=== PATIENT | female | born 1990 | race Caucasian/White ===

== ENCOUNTER 2020-04-30 16:32 | Outpatient (CLI) | payer OTHER, SELFPAY ==
[2020-04-30 16:53] LABS: Hematocrit 30.7 % (37.0-47.0); Hemoglobin 10.5 g/dL (12.0-15.0); Mean Corpuscular HGB Conc 34.2 g/dl (32-36); Mean Corpuscular Hemoglobin 30.3 pg (26-34); Mean Corpuscular Volume 88.7 fl (80-100); Mean Platelet Volume 10.8 fl (7.4-10.4); Platelet Count Result 171 k/mm3 (150-375); Red Blood Count 3.46 M/mm3 (4.2-5.4); Red Cell Distribution Width 12.4 % (11.5-14.5); White Blood Count 11.5 K/mm3 (4.5-10.0)
[2020-05-01 07:28] LABS: Rapid Plasma Reagin Non-Reactive (NonReactive)
== END 2020-04-30 16:33 | disposition home or self-care (01) ==
LOC: ANHLAB 16:36
PROVIDERS: Visit Provider Obstetrics & Gynecology
DX: Z01.818 Encounter for other preprocedural examination (principal)
CPT/HCPCS: 36415; 85027; 86592; 86850; 86900; 86901

== ENCOUNTER 2020-05-01 09:57 | Inpatient (IN) | payer OTHER, SELFPAY ==
--- NOTE | 2020-04-19 13:07 | PC.NURSE ---
VERIFIED WITH OR SCHEDULE AND PATIENT--C/S ON 05/01/20 AT 1200 PATIENT GIVEN REQUISITION FOR LAB DRAW ON 04/30/20
[2020-05-01] VITALS (60 sets, daily range): BP systolic 115–157; BP diastolic 59–99; PULSE 61–97; RESP 14–18; TEMP 36.2–37.3; O2SAT 95–100; BMI 25.7
--- NOTE | 2020-05-01 09:57 | LDADM ---
This patient, Yoselin Starr, was admitted to Labor/Delivery/Recovery 120 on 05/01/20 at 09:57. Plans for labor, pain management and were discussed with patient. Patient/family oriented to hospital policies and general routines including ID bracelet, bed and alarms, visiting hours, pain management, procedures, bathroom and other care routines, personal items, smoking policy, room service/diet and guest tray routines, infant security routines, and visiting hours. Patient/Family are encouraged to report perceived risks to care and to ask questions if they do not understand what they are told or what they should do. See OBIX for further documentation.
[2020-05-01] MEDS: LACTATED RINGERS 1,000 ML 125 ML IV CONT ×2 (10:30→11:24)
--- NOTE | 2020-05-01 11:13 | WPDANESEPPF ---
Anes - Initial Pre Proc Eval Procedure: Operation Date: 05/01/20 12:00 Proposed Procedures p Repeat Section - Caleb Bowie MD Date/Time: 05/01/20 11:13 Surgeon: Caleb Bowie MD Pre Op Diagnosis: C Section Patient Data Age: 29 Gender: F Height: 5 ft 9 in Weight: 79 kg Last Vital Signs Temp 37.1 C 05/01/20 10:30 Pulse 74 05/01/20 10:45 BP 118/74 05/01/20 10:45 Allergies Allergy/AdvReac Type Severity Reaction Status Date / Time BEE STINGS Allergy Swelling Uncoded 04/19/20 12:42 Home Medications Medication Instructions Recorded Confirmed Type PNV cmb#95-ferrous fumarate-FA 1 tablet PO DAILY 04/19/20 04/19/20 History [] escitalopram oxalate [Lexapro] 20 mg PO DAILY 04/19/20 04/19/20 History Patient hx anesthesia problems: none Family hx anesthesia problems: none PMFSH Surgical History Surgical History (Updated 05/01/20 @ 11:13 by Michael Jimenes MD) Previous delivery, delivered Family History Family History Father Parkinson disease Diabetes type 1, controlled Grandparent Cancer Social History Social History Smoking status: Never smoker Second hand tobacco smoke exposure: No Substance use: never Spiritual care concerns: No Anes - Eval Final PreProcedure Day of Procedure 05/01/20 11:13 Patient weight: normal Heart: regular rate and rhythm Lungs: clear to auscultation Airway: Mallampati scale class 1 Neurological: alert and oriented Emergent: no Anesthetic plan: proceed Anesthesia type and monitoring: regional spinal and standard monitoring Informed Consent: The patient's anesthetic plan and its attendant risks and benefits were discussed with the patient/family/POA. Questions were solicited and answers provided to the satisfaction of the patient/family/POA.
--- NOTE | 2020-05-01 11:54 | P.HP_ITS ---
H&P: HPI History of Present Illness Date/Time: 05/01/20 11:54 Chief complaint: C Section Narrative: 29 y/o at 39 weeks here for a repeat cesaeran. GBS neg. Review of Systems Review of Systems: All systems reviewed & are unremarkable except as noted in HPI and below PMFSH Past Medical History Medical History OCD (obsessive compulsive disorder) Surgical History Surgical History Previous delivery, delivered Family History Family History Father Parkinson disease Diabetes type 1, controlled Grandparent Cancer Social History Social History Smoking status: Never smoker Second hand tobacco smoke exposure: No Substance use: never Spiritual care concerns: No Meds Home Medications and Allergies Home Medications Medication Instructions Recorded Confirmed Type PNV cmb#95-ferrous fumarate-FA 1 tablet PO DAILY 04/19/20 04/19/20 History [] escitalopram oxalate [Lexapro] 20 mg PO DAILY 04/19/20 04/19/20 History Allergies Allergy/AdvReac Type Severity Reaction Status Date / Time BEE STINGS Allergy Swelling Uncoded 04/19/20 12:42 Vital Signs Vital Signs - 24 hr 05/01/20 10:30 05/01/20 10:32 05/01/20 10:45 Temperature 37.1 C Pulse Rate 76 74 Blood Pressure 115/73 118/74 Exam Const: Orientation/consciousness: patient oriented x3 Other: Well- developed, well-nourished female in no acute distress. Neck: Thyroid: thyroid normal Lymphatic: no lymphadenopathy noted (in neck, axilla or inguinal nodes) Resp: Effort & Inspection: normal respiratory effort Auscultation: clear to auscultation bilaterally Cardio: Rate: regular rate Rhythm: regular rhythm Heart sounds: S1 normal heart sound present and S2 normal heart sound present GI: Other: ABD: Soft, nontender, gravid. NST reactive. Rare contractions. : General: Yes no CVA tenderness Other: Cervix closed, thick Back/Spine/Pelvis: Back: no CVA tenderness Skin: General skin exam: normal color and no rashes or lesions noted Neuro: General: patient oriented x3 Extrem: Other: Extremities: nontender with no edema Psych: Mental Status: mental status grossly normal Affect: normal affect Assessment and Plan Assessment and plan (1) Term : Code(s): Z34.90 - Encounter for supervision of normal , unspecified, unspecified trimester Status: Acute (2) History of delivery: Code(s): Z98.891 - History of uterine scar from previous surgery Status: Acute Assessment and Plan: A: IUP at 39 weeks with prior , desiring repeat. P: She understands risks of surgery to include risks of anesthesia, risks of pain, infection, bleeding, blood products, thromboembolic phenomena and damage to adjacent structures such as bowel, bladder, ureters, blood vessels and nerves. She understands all these risks and elects to proceed with repeat low transverse delivery.
[2020-05-01] MEDS: ceFAZolin 2 GM/D5W 50 ML 2 GM/50 ML BAG IVPB (11:57)
--- NOTE | 2020-05-01 12:01 | WPDHPUPDATE1 ---
History and Physical Update Update Date/Time: 05/01/20 12:01 History and Physical has been reviewed, including an updated exam of the patient. There are NO changes in the patient's condition. Risks, benefits, and alternatives have been discussed and questions answered. Patient agrees to proceed with procedure.
--- NOTE | 2020-05-01 12:49 | PM.OBPRVD ---
OB - Delivery Note Procedure Procedure: Procedures Operation Date: 05/01/20 12:00 <No data on this case meets the specified criteria> Repeat low transverse delivery Delivery monitor: external FHT and external uterine Route of delivery: Specimen: Yes (cord blood) Estimated blood loss (mL): 355 Anesthesia type: Spinal Disposition: PACU Complications: None Narrative: The patient was taken to the operating room where she was prepared and draped in the usual sterile fashion in dorsal supine position with a leftward tilt. She received cefazolin preoperatively. Spinal anesthesia was found to be adequate. A Pfannenstiel skin incision was made along the previous scar line and was carried through to the underlying layer of the fascia. The fascia was incised in the midline and the incision was extended laterally. The fascia was dissected free of the underlying rectus muscles. The rectus muscles were in the midline. The peritoneum was identified, tented up and entered sharply. The peritoneal incision was extended superiorly and inferiorly with good visualization of the bladder. The bladder blade was placed. The vesicouterine peritoneum was identified, tented up and entered sharply. The incision was extended laterally and the bladder flap was developed. The bladder blade was replaced. The uterus was then incised sharply in a transverse fashion along the lower uterine segment. The incision was extended laterally. The 's head was delivered atraumatically to the sterile field, followed by the body. The nose and mouth were bulb suctioned. After a delay, the cord was clamped and cut. The infant was handed off the field. Cord blood was collected. The placenta was removed manually and was passed off the field. The uterus was exteriorized and cleared of all clots and debris. The uterine incision was reapproximated using 0 Monocryl in a running, locked fashion. A second, imbricating layer of the same suture was placed. Excellent hemostasis resulted as did excellent reapproximation of the normal anatomy. The uterus was returned the abdomen. The pelvis was irrigated copiously with warmed normal saline. Rigorous hemostasis was assured. The fascial layer was reapproximated using 0 Vicryl in a running fashion. The skin was closed with a running, subcuticular stitch of 4 0 Vicryl. Dermaflex was applied externally. Sponge, lap, needle and instrument counts were correct. The patient was taken to the recovery room in stable condition. The went to the nursery in stable condition. I was present and scrubbed the entire procedure. [place] Baby Date of : 05/01/20 Time of : 12:20 Weeks of gestation at delivery: 39 gender: Male Weight (pounds): 8 Weight (ounces): 1 presentation: vertex Placenta delivery description: Manual Removal and Normal Configuration cord vessel description: 3 Vessels and Nuchal Cord (x2) score one minute: 8 score five minutes: 9
--- NOTE | 2020-05-01 12:51 | PM.OBDSVD ---
DS: Admitting Diagnosis Admitting Diagnosis Admitting Diagnosis: C Section <Caleb Bowie MD - Last Filed: 05/22/20 13:14> DS: Discharge Diagnosis Discharge Diagnosis (1) History of delivery: Code(s): Z98.891 - History of uterine scar from previous surgery <Caleb Bowie MD - Last Filed: 05/22/20 13:14> Status: Acute <Caleb Bowie MD - Last Filed: 05/22/20 13:14> (2) Term : Code(s): Z34.90 - Encounter for supervision of normal , unspecified, unspecified trimester <Caleb Bowie MD - Last Filed: 05/22/20 13:14> Status: Acute <Caleb Bowie MD - Last Filed: 05/22/20 13:14> OB - DS: Summary Hospital Course Hospital Course: 29 yo who presented for repeat delivery. Her delivery and course were uncomplicated. The patient was d/c home on POD #2. <Caleb Bowie MD - Last Filed: 05/22/20 13:14> OB Procedures : None <Dima Vick MD - Last Filed: 05/05/20 09:32> OB Procedures Intrapartum: low cervical, transverse <Dima Vick MD - Last Filed: 05/05/20 09:32> OB Procedures: : None <Dima Vick MD - Last Filed: 05/05/20 09:32> Peripartum Data Infant Delivery Method: Section <Dima Vick MD - Last Filed: 05/05/20 09:32> Episiotomy description: None <Dima Vick MD - Last Filed: 05/05/20 09:32> Procedures: Procedures Operation Date: 05/01/20 12:00 <No data on this case meets the specified criteria> Repeat LTCS <Caleb Bowie MD - Last Filed: 05/22/20 13:14> complications: none <Dima Vick MD - Last Filed: 05/05/20 09:32> Status at Discharge Functional status at discharge: independent ambulation <Dima Vick MD - Last Filed: 05/05/20 09:32> Overall status at discharge: patient is progressing back to baseline <Dima Vick MD - Last Filed: 05/05/20 09:32> Time Spent with Patient Time spent: Less than 30 minutes <Dima Vick MD - Last Filed: 05/05/20 09:32> Exam Const: General: cooperative, healthy appearing and comfortable <Dima Vick MD - Last Filed: 05/05/20 09:32> HENMT: Head: normal to inspection <Dima Vick MD - Last Filed: 05/05/20 09:32> Eyes: General: appearance normal, both eyes and all related structures <Dima Vick MD - Last Filed: 05/05/20 09:32> Neck: Neck: normal visual inspection <Dima Vick MD - Last Filed: 05/05/20 09:32> Resp: Effort & Inspection: normal respiratory effort <Dima Vick MD - Last Filed: 05/05/20 09:32> Cardio: Rate: regular rate <Dima Vick MD - Last Filed: 05/05/20 09:32> Rhythm: regular rhythm <Dima Vick MD - Last Filed: 05/05/20 09:32> GI: Inspection: incision (healing appropriately ) <Dima Vick MD - Last Filed: 05/05/20 09:32> GI Palp: Yes abdominal tenderness (mild tenderness over incision ) <Dima Vick MD - Last Filed: 05/05/20 09:32> Auscultation: normal bowel sounds <Dima Vick MD - Last Filed: 05/05/20 09:32> Discharge Plan Discharge Attending physician on discharge: Caleb Bowie <Caleb Bowie MD - Last Filed: 05/22/20 13:14> Caleb Bowie <Dima Vick MD - Last Filed: 05/05/20 09:32> Consulting providers: Michael Jimenes <Caleb Bowie MD - Last Filed: 05/22/20 13:14> Discharging Clinician: Caleb Bowie <Caleb Bowie MD - Last Filed: 05/22/20 13:14> Caleb Bowie <Dima Vick MD - Last Filed: 05/05/20 09:32> Patient Disposition: Home, Self-Care <Caleb Bowie MD - Last Filed: 05/22/20 13:14> Activity: may shower, may drive after 2 weeks and pelvic rest <Caleb Bowie MD - Last Filed: 05/22/20 13:14> may shower, may drive after 2 weeks and pelvic rest <Dima Flores
[2020-05-01] MEDS: LORATADINE 10 MG TABLET PO (14:00)
[2020-05-01] MEDS: METHYLERGONOVINE MALEATE 0.2 MG/ML VIAL IM (14:24)
[2020-05-01] MEDS: fentaNYL CITRATE INJ (*CRX) 100 MCG/2 ML VIAL 25 MCG IV PUSH ×2 (14:41→14:54)
[2020-05-01] MEDS: miSOPROStol 200 MCG TABLET 1000 MCG RECTAL (14:42)
[2020-05-01] MEDS: ONDANSETRON INJ 4 MG/2 ML VIAL IV PUSH ×2 (14:58→19:45)
[2020-05-01] MEDS: OXYTOCIN 30 UNITS/NS 500 ML 30 UNITS/500 ML BAG 125 UNITS IV CONT (15:01)
--- NOTE | 2020-05-01 16:12 | SUR.PHASEI ---
1415 pt passed clots with fundal massage. vaginal extract performed and 473 gm blood noted. called Dr Bowie and requested evaluation. 1425 methergin im given 1430 Dr. Bowie at bedside vaginal extract performed. additional 226 gm clots noted. 1435 cytotec given per rectal. fundus firm.
[2020-05-02] VITALS: BP 136/90; PULSE 72; RESP 16; TEMP 36.9
[2020-05-02] MEDS: KETOROLAC 30 MG/ML VIAL (*BKC) IV PUSH (01:30)
[2020-05-02 04:00] VITALS: BP 125/85; PULSE 69; RESP 16; TEMP 36.9
[2020-05-02 06:21] LABS: Basophils Percent Auto 0.3 % (0.2-1.2); Eosinophils Percent Auto 0.2 % (0-4.4); Hematocrit 27.6 % (37.0-47.0); Hemoglobin 9.2 g/dL (12.0-15.0); Immature Granulocyte Absolute 0.12 K/mm3 (0.00-0.031); Immature Granulocyte Percent A 0.8 % (0-0.5); Lymphocytes Percent Auto 8.2 % (18.3-44.2); Mean Corpuscular HGB Conc 33.3 g/dl (32-36); Mean Corpuscular Hemoglobin 29.7 pg (26-34); Mean Platelet Volume 10.8 fl (7.4-10.4); Monocytes Absolute Auto 1.1 K/mm3 (0.1-0.6); Monocytes Percent Auto 7.2 % (2.6-8.5); Neutrophils Absolute Auto 13.3 K/mm3 (1.3-6.7); Neutrophils Percent Auto 83.3 % (45.5-73.1); Platelet Count Result 168 k/mm3 (150-375); Red Cell Distribution Width 12.2 % (11.5-14.5); White Blood Count 15.9 K/mm3 (4.5-10.0)
--- NOTE | 2020-05-02 07:50 | PM.OBPNVD ---
OB - PN: Subj Subjective Date/time seen: 05/02/20 07:50 Interval history: Patient doing well this AM. she has ambulated out of bed. She is tolerating PO. She reports adequate pain control. Her bleeding is normal and she reports normal lochia. She denies fever, chills, N/V. She has not yet passed flatus. Patient comments: no complaints and pain well controlled; no flatus present OB - PN: Obj Data Labs CBC & Chem 7: 05/02/20 05:49 Labs: Laboratory Results - last 24 hr 05/02/20 05:49 WBC 15.9 H RBC 3.10 L Hgb 9.2 L Hct 27.6 L MCV 89.0 MCH 29.7 MCHC 33.3 RDW 12.2 Plt Count 168 MPV 10.8 H Immature Gran % (Auto) 0.8 H Neut % (Auto) 83.3 H Lymph % (Auto) 8.2 L [place] % (Auto) 7.2 Eos % (Auto) 0.2 Baso % (Auto) 0.3 Lymph # (Auto) 1.30 [place] # (Auto) 1.1 H Eos # (Auto) 0.0 Baso # (Auto) 0.0 Abs Immat Gran (auto) 0.12 H Absolute Neuts (auto) 13.3 H Absolute Nucleated RBC 0.0 Nucleated RBC % 0.0 OB - PN A/P Plan day: 1 Plan: routine care Comments: patient doing well this AM navarrete d/c this AM advance diet as tolerated H/H , will start iron supplement continue routine PP care plan for circumcision today risk, benefits, and alternatives to circumcision discussed with parents, consent obtained Time Spent With Patient Time: Total time spent is greater than 50% in coordination of care (as documented) at patient's floor/unit and/or counseling patient: Time with patient: less than 15 minutes Review of Systems Constitutional: Constitutional: Reports no additional constitutional complaints Cardiovascular: Cardiovascular: Reports no additional cardiovascular complaints Respiratory: Respiratory: Reports no additional respiratory complaints Gastrointestinal: Gastrointestinal: Reports no additional gastrointestinal complaints Genitourinary: Genitourinary: Reports no additional female genitourinary complaints Exam Const: General: comfortable and no acute distress Resp: Effort & Inspection: normal respiratory effort Auscultation: clear to auscultation bilaterally Cardio: Rate: regular rate GI: GI Palp: Yes Soft to palpation and Yes Tenderness to palpation present (GI) (appropriately tender around incision ) Auscultation: normal bowel sounds Other: fundus firm and below umbilicus Incision C/D/I Urinary Catheter: Urinary Catheter: urine clear Psych: Appearance: grossly normal Mental Status: mental status grossly normal Affect: normal affect
[2020-05-02 08:15] VITALS: BP 92/49; PULSE 79; RESP 16; TEMP 36.8; O2SAT 98
[2020-05-02] MEDS: IBUPROFEN 600 MG TABLET PO ×2 (10:22→16:40)
[2020-05-02] MEDS: ESCITALOPRAM OXALATE 10 MG TABLET 20 MG PO (10:23)
[2020-05-02] MEDS: MULTIVIT/MIN/PREN/FOL AC/IRON TABLET 1 TAB PO (10:24)
[2020-05-02] MEDS: DOCUSATE SODIUM 100 MG CAPSULE PO ×2 (10:24→16:40)
[2020-05-02] MEDS: POLYSACCHARIDE IRON COMPLEX 150 MG CAPSULE PO (10:24)
--- NOTE | 2020-05-02 10:40 | PC.NURSE ---
Consulted with patient, mother reports infant is sleepy after circumcision. Demonstrated stimulation techniques to wake infant, awoken and showing feeding cues. Reviewed feeding cues, frequencies, duration of feedings, feeding elimination flow sheet, and signs of adequate intake. Reviewed positioning/alignment in cross cradle, holding breast in U hold and guided asymmetrical latch on. Discussed rational for each. Infant was able to latch correctly. Infant nursed eagerly, with steady draws and frequent swallowing noted. Reviewed signs of a correct latch, effective nursing and suck swallow ratio. Infant was[able/unable] to maintain latch without discomfort to mother. Nipple care reviewed. Suggested to stimulate infant while feeding to keep awake and nursing effectively for increased intake and to assist with maintaining deep latch. Demonstrated how to adjust latch while feeding. Instructed mother to call out for RN assistance if she is unable to latch infant for feeding or she has discomfort with nursing. Instructed feeding should be initiated three hours from start of last feeding or if feeding cues are noted before. Mother voiced understanding of information shared.
--- NOTE | 2020-05-02 10:45 | WPDANLDPN2 ---
Anes-Prog Note L&D Date/Time: 05/02/20 10:45 Comfortable throughout: section Neuraxial method: spinal Epidural/Spinal procedure site: clean & non-tender Neuro status: Neuro function grossly intact. Cardiovascular status: normal Respiratory status: normal Airway patency: baseline Mental status: baseline Post-Op hydration status: normal Vital Signs: Last Vital Signs Temp 36.8 C 05/02/20 08:15 Pulse 79 05/02/20 08:15 Resp 16 05/02/20 08:15 BP 92/49 L 05/02/20 08:15 Pulse Ox 98 05/02/20 08:15 Pain score (VAS): 2 I/O: Intake & Output 05/01/20 05/02/20 05/02/20 23:59 07:59 15:59 Intake Total 1000 Output Total 1100 Balance -100 Post-procedural complaints: none Patient feedback: Patient satisfied with anesthetic care.
--- NOTE | 2020-05-02 10:45 | WPDANLDNPN2 ---
Anes-Prog Note L&D-Neuraxial Date/Time: 05/02/20 10:45 Neuraxial medications: intrathecal PF morphine Opiod-related complaints: none Patient feedback: Patient satisfied with post-operative pain management.
[2020-05-02 12:25] VITALS: BP 91/50; PULSE 90; RESP 16; TEMP 36.7; O2SAT 98
[2020-05-02] MEDS: POLYSACCHARIDE IRON COMPLEX 150 MG CAPSULE (16:40)
[2020-05-02] MEDS: SIMETHICONE 80 MG TAB.CHEW PO (16:41)
[2020-05-02 19:44] VITALS: BP 95/52; PULSE 94; RESP 16; TEMP 36.4; O2SAT 97
[2020-05-03] MEDS: IBUPROFEN 600 MG TABLET PO ×2 (01:02→08:14)
[2020-05-03] MEDS: POLYSACCHARIDE IRON COMPLEX 150 MG CAPSULE PO (08:14)
[2020-05-03] MEDS: ESCITALOPRAM OXALATE 10 MG TABLET 20 MG PO (08:14)
[2020-05-03] MEDS: MULTIVIT/MIN/PREN/FOL AC/IRON TABLET 1 TAB PO (08:14)
[2020-05-03] MEDS: DOCUSATE SODIUM 100 MG CAPSULE PO (08:14)
[2020-05-03 08:30] VITALS: BP 100/58; PULSE 80; RESP 16; TEMP 36.7; O2SAT 99
--- NOTE | 2020-05-03 11:41 | WPDANLDPN2 ---
Anes-Prog Note L&D Date/Time: 05/03/20 11:41 Comfortable throughout: section Neuraxial method: spinal Epidural/Spinal procedure site: clean & non-tender Neuro status: Neuro function grossly intact. Cardiovascular status: normal Respiratory status: normal Airway patency: baseline Mental status: baseline Post-Op hydration status: normal Vital Signs: Last Vital Signs Temp 36.4 C 05/02/20 19:44 Pulse 94 05/02/20 19:44 Resp 16 05/02/20 19:44 BP 95/52 L 05/02/20 19:44 Pulse Ox 97 05/02/20 19:44 Pain score (VAS): 0 Post-procedural complaints: none Patient feedback: Patient satisfied with anesthetic care.
--- NOTE | 2020-05-03 11:41 | WPDANLDNPN2 ---
Anes-Prog Note L&D-Neuraxial Date/Time: 05/03/20 11:41 Neuraxial medications: intrathecal PF morphine Opiod-related complaints: none Patient feedback: Patient satisfied with post-operative pain management.
[2020-05-05 09:23] VITALS: BP 99/57; PULSE 103; RESP 20; TEMP 37.1; O2SAT 98
== END 2020-05-03 14:00 | disposition home or self-care (01) | DRG 788 ==
LOC: ANHLDR 10:18 → ANHOB2 05-02 11:09 → ANHLDR 05-05 13:29 → ANHOB2 05-05 13:29
PROVIDERS: Admitting Provider Obstetrics & Gynecology; Visit Provider Student in an Organized Health Care Education/Training Program
PROC: 10D00Z1 Extraction of Products of Conception, Low, Open Approach (ICD-10-PCS; CPT 59514; principal; 2020-05-01 12:00)
DX: O34.211 Maternal care for low transverse scar from previous cesarean delivery (principal); O69.81X0 Labor and delivery complicated by cord around neck, without compression, not applicable or unspecified; Z3A.39 39 weeks gestation of pregnancy; Z37.0 Single live birth; Z23 Encounter for immunization
CPT/HCPCS: 36415; 85025; 90471; 90653; A9270; G0008; J0131; J0690; J1100; J1885; J2210; J2274; J2370; J2405; J2590; J3010; J7120